=== PATIENT | female | born 1965 | race Caucasian/White ===

== ENCOUNTER 2021-04-16 17:36 | Emergency (ER) | payer BC, SELFPAY ==
--- NOTE | ~2021-04-16 | XR_ITS ---
XR foot RT min 3V 04/16/2021 18:21 Indication: Right foot pain after trauma Procedure: 4 views right foot Comparison: No prior studies for comparison. Findings: There is anatomic alignment. No fracture or traumatic malalignment. Lisfranc joint intact. No focal soft tissue abnormality. No foreign bodies. Impression: 1: No acute bone or joint abnormality. Reviewed, dictated and finalized at location A. ERY FILLER Impression: 1: No acute bone or joint abnormality.
[2021-04-16 17:48] VITALS: BP 118/84; PULSE 116; RESP 14; TEMP 37.1; O2SAT 98
--- NOTE | 2021-04-16 18:31 | ED.LOWEXIN ---
HPI - Extremity Injury (Lower) General Chief Complaint: Extremity Injury, Lower Stated Complaint: Toe Injury/ Right Foot Time Seen by Provider: 04/16/21 18:20 Source: patient, family and RN notes reviewed Mode of arrival: ambulatory Limitations: no limitations History of Present Illness HPI Narrative: 55 year old female who presents to [facility] with complaints of having some redness with swelling, small amount of bloody drainage from nail bed and peeling around nail bed for the past 2 weeks with increased symptoms the past 4 days. Patient states that she dropped a TV tray on her right great toe 4 days ago and now has increased redness, swelling, with bloody drainage from tissue at nail bed and piece of outer toenail coming off with some purulent drainage noted. Patient denies any fevers chills or sweats. Patient is diabetic and on daily blood thinner. MD complaint: other ( right great toe) Onset (ago): week(s) (2) Injury: Right: toes (right great toe) Treatments prior to arrival: bandage and other (soaking and dressing) Related Data Home Medications Medication Instructions Recorded Confirmed amitriptyline 25 mg PO DAILY 04/16/21 04/16/21 gabapentin 800 mg PO TID 04/16/21 04/16/21 lisinopril 40 mg PO DAILY 04/16/21 04/16/21 metformin 1,000 mg PO BID 04/16/21 04/16/21 metoprolol tartrate 100 mg PO BID 04/16/21 04/16/21 pravastatin 40 mg PO DAILY 04/16/21 04/16/21 rivaroxaban [Xarelto] 20 mg PO DAILY 04/16/21 04/16/21 sotalol 120 mg PO BID 04/16/21 04/16/21 spironolactone 25 mg PO DAILY 04/16/21 04/16/21 Allergies Allergy/AdvReac Type Severity Reaction Status Date / Time No Known Allergies Allergy Verified 04/16/21 18:19 Review of Systems Review of Systems: CONSTITUTIONAL: Denies fever, chills, or sweats. EYES: Denies visual changes, redness, or discharge. ENT: Denies rhinorrhea, congestion, sore throat, or otalgia. CARDIOVASCULAR: Denies chest pain, palpitations, or edema. RESPIRATORY: Denies cough or dyspnea. GASTROINTESTINAL: Denies abdominal pain, nausea, vomiting, or diarrhea. GENITOURINARY: Denies dysuria or hematuria. SKIN: Denies rash or itching.redness swelling with some bloody drainage around nail bed of right great toe. MUSCULOSKELETAL: Denies back pain, joint pain, or myalgia. NEUROLOGIC: Denies headache, numbness, or weakness. PSYCHIATRIC: Denies anxiety or depression. All systems reviewed & are unremarkable except as noted in HPI and below PMFSH Past Medical History Medical History (Updated 04/19/21 @ 21:21 by Rosita Mendez NP) A-fib Diabetes Elevated cholesterol Hypertension Insomnia Neuropathy Surgical History Surgical History (Updated 04/19/21 @ 21:22 by Rosita Mendez NP) Hx of cholecystectomy Previous section Family History Family History (Updated 04/19/21 @ 21:23 by oRsita Mendez NP) Father Heart disease Cerebrovascular accident Hypertension Rectal cancer Mother Heart disease Sibling Carcinoma of colon Social History Social History (Updated 04/19/21 @ 21:24 by Rosita Mendez NP) Smoking status: Former smoker Additional smoking assessment comments: quit 6 years ago smoked 1 pack per week Alcohol intake: never Substance use: never Living arrangements: with family Gender identity (if verbalized by the patient): Female Comments At time of signature, agree with nursing past medical, surgical, social and family history. There is no relevant family history pertinent to the presenting complaint Exam Narrative: GENERAL: Well-appearing, well-nourished, and in no acute distress. HEAD: Normocephalic, atraumatic. EYES: PERRLA and EOMI. ENT: Nares clear, no rhinorrhea or epistaxis. Mucous membranes moist.TM's normal with good light reflex, throat pink with no lesions or exudates no tonsil enlargement NECK: Supple.no lymphadenopathy CHEST: Clear to auscultation. No respiratory distress.SAO2 98% on room air HEART: irregular heart rate. No m
== END 2021-04-16 18:55 | disposition home or self-care (01) ==
PROVIDERS: Emergency Provider Registered Nurse
DX: S91.201A Unspecified open wound of right great toe with damage to nail, initial encounter (principal); W20.8XXA Other cause of strike by thrown, projected or falling object, initial encounter; Z87.891 Personal history of nicotine dependence; I48.91 Unspecified atrial fibrillation; E78.00 Pure hypercholesterolemia, unspecified; I10 Essential (primary) hypertension; E11.40 Type 2 diabetes mellitus with diabetic neuropathy, unspecified
CPT/HCPCS: 73630; 99213; G0463